=== PATIENT | male | born 1960 | race Caucasian/White ===

== ENCOUNTER 2019-03-19 05:51 | Inpatient (IN) | payer OTHER ==
[2019-03-14 09:28] LABS: HEMATOCRIT 43.2 % (42.0-52.0); HEMOGLOBIN 14.7 gm/dL (14.0-18.0); MCH 30.9 pg (26.0-34.0); MCHC 34.1 g/dL (28.0-37.0); MCV 90.7 fL (80.0-100.0); RBC 4.76 mil/uL (4.50-6.00); WBC 4.8 thou/uL (4.0-11.0)
[2019-03-14 09:39] LABS: ALBUMIN 4.4 g/dL (3.4-5.0); CALCIUM 9.8 mg/dL (8.5-10.1); CREATININE 1.1 mg/dL (0.7-1.3); POTASSIUM 4.4 mmol/L (3.5-5.1)
[2019-03-14 09:44] LABS: PROTIME 10.7 Seconds (9.3-11.4)
[2019-03-14 09:47] LABS: URINE BILIRUBIN NEGATIVE (Negative); URINE BLOOD NEGATIVE (Negative); URINE CLARITY CLEAR; URINE COLOR YELLOW; URINE GLUCOSE-RANDOM* NEGATIVE (Negative); URINE KETONES NEGATIVE (Negative); URINE LEUKOCYTES-REFLEX NEGATIVE (Negative); URINE NITRITE-REFLEX NEGATIVE (Negative); URINE PROTEIN (DIPSTICK) NEGATIVE (Negative); URINE SPECIFIC GRAVITY 1.015 (1.005-1.035); URINE UROBILINOGEN 0.2 E.U./dl (0.2-1.0)
[~2019-03-19] VITALS: Ht 175.3 cm; Wt 79.4 kg
[2019-03-19] VITALS (9 sets, daily range): BP systolic 99–118; BP diastolic 46–78
[~2019-03-19 05:51] MED LIST: LISINOPRIL-HCT1 EACH PO; SERTRALINE HCL100 MG PO; SUPER THERAVIT1 EACH PO; TRAMADOL 50 MG50 MG PO
--- NOTE | 2019-03-19 10:03 | O ---
[facility] [place] [address] OPERATIVE REPORT Name: RALPH IVERSON Room #: 150-2 [facility].#: [id number] Admission: 03/19/19 Attend Phys: Gino Holden MD Discharge: Date of : 60 Report #: [id number] THIS REPORT FOR: //name// CC: Gino Holden Physician staff TYRONE HUYNH DATE OF SERVICE: 03/19/2019 PREOPERATIVE DIAGNOSIS: Degenerative arthritis, right hip. POSTOPERATIVE DIAGNOSIS: Degenerative arthritis, right hip. PROCEDURE: Right total hip arthroplasty. SURGEON: Gino Holden MD INDICATIONS: This slender, fit and active 58-year-old gentleman has progressive right hip pain. Clinical and x-ray findings confirm rather severe degenerative arthritis with some findings suggestive of AVN. There is significant spurring and loss of joint space. We have discussed treatment options and he has tried a variety of conservative measure without clear benefit. He has elected to go ahead with total hip arthroplasty at this time. DESCRIPTION OF PROCEDURE: The patient was taken to the operating room where he was placed under general anesthesia. Prophylactic intravenous antibiotics were administered. He was turned to the left lateral decubitus position. The right hip, thigh and leg were meticulously prepped and draped. A slightly curving skin incision was made centered over the greater trochanter, extending to the posterior aspect of the joint. The short external rotators and capsule were taken down and preserved and tagged with several #1 Tevdek sutures. The hip was dislocated posteriorly. Marked degenerative change on both the femoral head and acetabulum was noted. A femoral neck osteotomy was performed and the femoral canal was prepared using canal reamers and hand broaches. The Dawn and Nephew system was utilized. The femur seemed best suited for a size 14 femoral stem. The calcar was trimmed down to an appropriate level. The trial component was removed and attention directed to the acetabulum. Good exposure was established and the acetabulum was sequentially reamed, gradually advancing to a 54 mm reamer. A Dawn and Nephew 54 mm 3-hole StikTite coated shell was inserted. This was placed in alignment with his true acetabulum, which positioned this in about 45 degrees off of vertical and about 20 degrees of anteversion. It seated nicely and appeared to be secure. In addition, 3 cancellous screws were placed through the apex holes and they engaged good periacetabular bone with excellent fixation. A 54 mm acetabular liner was then inserted. This was positioned with the 20-degree elevated rim at [address] [address] OPERATIVE REPORT Name: RALPH IVERSON Room #: 150-2 [facility].#: [id number] Admission: 03/19/19 Attend Phys: Gino Holden MD Discharge: Date of : 60 Report #: [id number] about the 10 o'clock posterior position. It also seated nicely and appeared to be secure. Attention was directed back to the femur. The Dawn and Nephew size 14 high offset femoral component was then inserted. This was advanced nicely into the canal and seated well and appeared to be secure. It was positioned in about 20 degrees of anteversion. Trial reduction was performed and the hip seemed nicely reduced and stable when using a +0 neck length and a 36 mm Oxinium head. Range of motion, alignment, stability and leg length were assessed and felt to be satisfactory. The hip seemed to be stable. In addition, the capsule and short external rotators, which had been preserved were then repaired back to bone using the #1 Tevdek sutures, passed through small drill holes in the greater trochanter, this added nicely to overall stability. At this point, the wound was copiously irrigated. Good hemostasis was established. A single Hemovac was left in the wound deep to the fascia exiting through a separate stab incision. The fascia was then closed with multiple #1 Vicryl sutures. The subcutaneous tissues were closed with 0 Monocryl. The skin was closed with skin kristopher. A sterile dressing was applied. The patient was awakened and returned to recovery room in good condition. <ELECTRONICALLY SIGNED> By: Gino Holden MD 03/19/19 1003 [id number] Gino Holden MD /nt
--- NOTE | 2019-03-19 11:51 | NUR ---
Pt came to unit from PACU approx 1045. Dressing on rt hip clean and intact. Ice pack in place. Hemovac drain in place. Pain controlled. Vital signs stable. On 2L O2. AMANDA hose and SCD in place. Family at bedside. IV fluids infusing. Call light within reach. Will continue to monitor.
[2019-03-20] VITALS (7 sets, daily range): BP systolic 112–132; BP diastolic 61–85
--- NOTE | 2019-03-20 04:41 | NUR ---
Assumed pt care at 1900. Pt is A/OX4,VSS. C/o pain to right hip 11/22 medicated per EMAR with partial relief reported. MERA dressing/Hemovac in place on right hip. Pt voiding per urinal w/o any discomfort voiced. Fall precauitons implemented, call light/personal items within reach. Resting quietly at this time,will continue to monitor pt.
[2019-03-20 05:30] LABS: HEMOGLOBIN 12.1 gm/dL (14.0-18.0); MCH 30.9 pg (26.0-34.0); MCHC 33.6 g/dL (28.0-37.0); MCV 92.2 fL (80.0-100.0); RBC 3.9 mil/uL (4.50-6.00); RDW 12.7 % (10.5-14.5); WBC 9.7 thou/uL (4.0-11.0)
--- NOTE | 2019-03-20 10:06 | NUR ---
INITIAL ASSESSMENT: Pt evaluated for d/c planning needs. Reviewed chart and spoke with nurse and pt. Pt is alert and oriented. Pt lives in house with spouse and was independent with ADL's prior to admission to the hospital. Pt has cane at home and will need walker for home use. Contacted [employer] and they will deliver walker to pt prior to d/c. Will await input from PT re: recommendation for therapy on d/c.
--- NOTE | 2019-03-20 11:54 | NUR ---
ASUMMED PT. CARE APPROX. 0700. A&Ox4. UP WITH PT. GOT DIZZY AND NEEDED TO SIT DOWN. PAIN CONTROLLED WITH PAIN MEDICATION. MERA DRESSING INTACT. POLAR PACK IN PKACE. AMANDA KUMARIES ON AND SCD'S. HAD R. KNEE OA DONE 4 MONTHS AGO. PT ON ROOM AIR. PLEASANT PT.
--- NOTE | 2019-03-21 04:22 | NUR ---
Assumed pt care at 1900. A/OX4,VSS.On assessment pt verbalized pain relief 07/23. Dr Holden's nurse returned call and update on patient pain level and temp and stated we monitor pt. Ice pack provided per request. Continent of Bladder.Fall precautions implemented,calls approp. Resting quietly at this time will continue to monitor.
[2019-03-21 05:30] VITALS: BP 136/90
[2019-03-21 05:37] LABS: HEMATOCRIT 35.9 % (42.0-52.0); MCH 30.9 pg (26.0-34.0); MCHC 33.6 g/dL (28.0-37.0); MCV 92.1 fL (80.0-100.0); RBC 3.9 mil/uL (4.50-6.00); WBC 10.6 thou/uL (4.0-11.0)
[2019-03-21 07:46] VITALS: BP 127/88
[2019-03-21 09:47] VITALS: BP 127/88
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
== END 2019-03-21 10:27 | disposition home or self-care (01) | DRG 470 ==
LOC: OR 05:51 → TBA 05:51 → PRE 08:22 → OR 10:45 → 4S 10:46 → PRE 12:41 → EDSTATUS 17:24 → OR 17:26 → PRE 18:24 → ENTRNSPT 03-21 10:06 → EDTRNSPTSTS 03-21 10:10 → 4S 03-21 10:27
PROVIDERS: ADMIT Orthopaedic Surgery
PROC: 0SR906Z Replacement of Right Hip Joint with Oxidized Zirconium on Polyethylene Synthetic Substitute, Open Approach (ICD-10-PCS; principal; 2019-03-19)
DX: M16.11 Unilateral primary osteoarthritis, right hip (principal); Z79.899 Other long term (current) drug therapy; Z79.01 Long term (current) use of anticoagulants
CPT/HCPCS: 10102; 50010; 50101; 50382; 50414; 51412; 51771; 53000; 53368; 56521; 56525; 56527; 57095; 62110; 62900; 70005